=== PATIENT | female | born 1940 | race Caucasian/White ===

== ENCOUNTER → 2017-11-11 12:58 | Outpatient (CLI) | payer MEDICARE, SELFPAY ==
--- NOTE | 2017-11-11 13:04 | MR_ITS ---
MR lumbar spine wo con, MR 3-d myelogram/ Ordering Physician: Dequan Thapa Patient Age: 76 years: Female HISTORY: ...: INTERVERTEBRAL DISC DISORDER Bilateral leg pain. Bilateral hip pain. Burning bilateral thigh. Symptoms more pronounced left leg. TECHNIQUE: Sagittal STIR, T1, T2, axial T1 and T2. On 1.5T Siemens wide bore MRI. 3-D MR myelogram image set obtained & performed on MRI workstation. Additional sagittal thin section T2 weighted dataset obtained from this latter acquisition as well (---76 CPT) COMPARISON :. None available FINDINGS The lumbar vertebral bodies are intact. No compression fractures or significant lesions. Upper most sacrum appears intact. Mild levoscoliosis with levocurvature most evident at L2/3 L5/S1. Diffuse Degenerative disc space narrowing. Left foraminal disc bulge yields moderate/generous encroachment left foramen. Moderate bilateral Facet hypertrophy also slightly indents thecal sac posteriorly. L4/5. Disc height well-maintained. Scant disc bulge. Prominent facet hypertrophy left greater than right slightly indenting thecal sac. Mild ligament flavum hypertrophy contribute as well to this appearance. Encroachment at entry of both foramen which is most evident on left. Moderate left foraminal and recess encroachment. L3/4 mild diffuse disc bulge along with prominent posterior element hypertrophy indenting posterior aspect of thecal sac. Collimation features Yielding mild central canal stenosis.... & Moderate left foraminal encroachment with mild right foraminal encroachment. L2/3. Marked degenerative disc space narrowing to the right associated with the patient's mild levoscoliosis. Bilateral Foraminal disc bulge along. Moderate facet hypertrophy most evident to the right which indents the posterior right aspect of thecal sac. Mild/Moderate Central canal stenosis. These features combine to yield mild/ moderate foraminal encroachment bilateral. L1/2. Mild diffuse disc bulge. Facet hypertrophy on right more so than left slightly indents posterior aspect of thecal sac. Only slight narrowing the spinal canal borderline stenosis on axial images. Mild bilateral foraminal encroachment. T12/L1. Scant disc bulges to the right of midline. No foramen widely patent. T 11/12. It. Mild/Moderate Central disc bulge but generous overall volume spinal canal. T10-11 displaced included and unremarkable 3-D MRI myelogram image set is helpful in this case and showing the tapering of the spinal canal at L4/5 level due to the facet hypertrophy also slight tapering L3/4. Most Notable rightward indentation upon the thecal sac at L2/3 due to the facet hypertrophy and levoscoliosis at this level. The mild spinal stenosis most evident at L2/34 lumbar L1/2 no and L3/4. Abnormal right kidney-. Markedly thinned cortex with prominent right renal pelvis versus parapelvic cyst which spans up to 6 cm x 4 cm at the medial aspect small trunk and right kidney.. Warrants further evaluation. Question possible chronic UPJ obstruction sequela? Suggested urology consult and consider CT with contrast with delayed imaging and/ or ultrasound kidneys. It appears be diffuse moderate atheromatous plaque at the abdominal aorta most evident at thoracolumbar junction a which may benefit from this postcontrast CT survey as well. IMPRESSION 1. Multilevel degenerative disc changes, spondylosis & posterior facet hypertrophy as detailed in text. Regarding left-sided symptoms.: Bulging disc & facet hypertrophy yield foraminal encroachment the left most evident at L5/S1 & less pronounced L3/4, L2/3 L1/2. Bulging disc & facet hypertrophy yielding multilevel Central canal spinal stenosis- most evident at L2/3, followed by L1/2 and L3/4.... L4/5 with o
== END ==
PROVIDERS: Family Provider Family Medicine; PCP Anesthesiology; Visit Provider Anesthesiology
DX: M51.17 Intervertebral disc disorders with radiculopathy, lumbosacral region (principal)
CPT/HCPCS: 72148; 76376